=== PATIENT | female | born 1940 | race Caucasian/White ===

== ENCOUNTER 2018-11-25 13:27 | Emergency (ER) | payer MEDICARE, BC ==
[2018-11-25] MEDS ORDERED: Sodium Chloride 0.9% 10 ML Syringe FLUSH PRN (14:00)
[2018-11-25] MEDS ORDERED: Famotidine 20 MG/2 ML SDV IVPUSH ONE (14:01)
[2018-11-25] MEDS ORDERED: Alum Hydrox/Mag Hydrox/Simeth 30 ML, Lidocaine 2% 15 ML PO ONE ×2 (14:01)
--- NOTE | 2018-11-25 14:50 | CR ---
Chest: Two views of the chest were obtained. Comparison: No prior chest x-ray. Heart size is normal. Tortuous thoracic aorta is seen. Slight scarring or atelectasis is seen within the left lung base. Lungs otherwise are clear. Diaphragms are slightly flattened on the lateral view raising the possibility of emphysematous change. Mild degenerative change is scattered within the spine. Impression: 1. Incidental findings. Nothing acute is seen. Diagnostic code #2
--- NOTE | 2018-11-25 16:08 | EDM.PDOC ---
ED HPI GENERAL MEDICAL PROBLEM - General Chief Complaint: Chest Pain Stated Complaint: HEST PAIN/ VITAMIN STUCK IN THROAT Time Seen by Provider: 11/25/18 13:34 Source of Information: Reports: Patient History Limitations: Reports: No Limitations - History of Present Illness INITIAL COMMENTS - FREE TEXT/NARRATIVE: The patient presents with chest pain. This started at 10am after taking her pills. She thought one of them got stuck. She has no shortness of breath. She has a history of GERD. She will get pain like this that comes and goes and she has reflux. She has no history of heart disease. She has no fever, chills or cough. She came in today because the pain did not go away right away. She is on nexium. Onset: Sudden Duration: Hour(s): Location: Reports: Chest Quality: Reports: Burning Severity: Moderate Improves with: Reports: None Worsens with: Reports: None Associated Symptoms: Reports: Chest Pain. Denies: Cough, Fever/Chills, Headaches, Nausea/Vomiting, Shortness of Breath Chest Pain Score (Numeric/FACES): 8 - Related Data Allergies Allergy/AdvReac Type Severity Reaction Status Date / Time erythromycin base Allergy Vomiting Verified 11/25/18 13:36 nut - unspecified Allergy Itching Verified 11/25/18 13:36 Home Meds: Home Meds Alendronate Sodium [Fosamax] 70 mg PO DAILY 11/25/18 [History] Aspirin 1 tab PO DAILY 11/25/18 [History] Calcium Carbonate [Tums Extra Strength] 750 mg PO ASDIRECTED PRN 11/25/18 [ History] Calcium Phosphate Trib/Vit D3 [Citracal + D3 Gummies] 1 each PO DAILY 11/25/18 [ History] Cholecalciferol (Vitamin D3) [Vitamin D] 1 tab PO DAILY 11/25/18 [History] Esomeprazole Magnesium [Nexium 24Hr] 22.3 mg PO DAILY 11/25/18 [History] Fluticasone Propionate [Flonase] 16 gm NS ASDIRECTED PRN 11/25/18 [History] Levothyroxine [Synthroid] 50 mcg PO ACBREAKFAST 11/25/18 [History] Magnesium Gluconate 27 mg PO DAILY 11/25/18 [History] [place]-3/DHA/Epa/Fish Oil [Coram 3 500 Softgel] 1 tab PO DAILY 11/25/18 [History] Ranitidine [Zantac] 150 mg PO DAILY PRN 11/25/18 [History] Rosuvastatin [Crestor] 10 mg PO DAILY 11/25/18 [History] Past Medical History HEENT History: Reports: Hard of Hearing, Impaired Vision Cardiovascular History: Reports: High Cholesterol Respiratory History: Reports: None Gastrointestinal History: Reports: Chronic Constipation, GERD, Hemorrhoids Genitourinary History: Reports: Renal Calculus, UTI, Recurrent SERVICES ADVISOR History: Reports: Musculoskeletal History: Reports: Arthritis Neurological History: Reports: None Psychiatric History: Reports: None Endocrine/Metabolic History: Reports: Hypothyroidism Hematologic History: Reports: None Immunologic History: Reports: None Oncologic (Cancer) History: Reports: None Dermatologic History: Reports: None - Infectious Disease History Infectious Disease History: Reports: None - Past Surgical History HEENT Surgical History: Reports: Adenoidectomy, Cataract Surgery, Oral Surgery, Tonsillectomy Female Surgical History: Reports: Hysterectomy, Lithotripsy/ESWL Other Female Surgeries/Procedures: ruptured tubal Musculoskeletal Surgical History: Reports: Hip Replacement Social & Family History - Family History Family Medical History: Noncontributory - Tobacco Use Smoking Status *Q: Never Smoker - Caffeine Use Caffeine Use: Reports: Coffee - Recreational Drug Use Recreational Drug Use: No ED ROS GENERAL - Review of Systems Review Of Systems: See Below Constitutional: Reports: No Symptoms HEENT: Reports: No Symptoms Respiratory: Reports: No Symptoms Cardiovascular: Reports: Chest Pain Endocrine: Reports: No Symptoms GI/Abdominal: Reports: No Symptoms : Reports: No Symptoms Musculoskeletal: Reports: No Symptoms ED EXAM, GENERAL - Physical Exam Exam: See Below Exam Limited By: No Limitations General Appearance: Alert, No Apparent Distress Ears: Normal External Exam Nose: Normal Inspection Head: Atraumatic, Normocephalic Neck: Normal Inspection Respiratory/Chest: No Respiratory Distress, Lungs Clear, Normal Breath Sounds Cardiovascular: Regular Rate, Rhythm, No Edema, No Murmur GI/Abdominal: Soft, Non-Tender, No Organomegaly, No Mass Back Exam: Normal Inspection Extremities: Normal Inspection EKG INTERPRETATION EKG Date: 11/25/18 Time: 13:41 Rhythm: NSR Rate (Beats/Min): 63 [place]: Normal P-Wave: Present QRS: Normal ST-T: Normal QT: Normal Course - Vital Signs Last Recorded V/S: Last Vital Signs Temp 97.7 F 11/25/18 13:47 Pulse 62 11/25/18 13:47 Resp 16 11/25/18 13:47 BP 216/89 H 11/25/18 13:47 Pulse Ox 99 11/25/18 13:47 - Orders/Labs/Meds Orders: Active Orders 24 hr Category Date Time Status Cardiac Monitoring [RC] . DIRECTED Care 11/25/18 14:00 Active EKG 12 Lead [EKG Documentation Completion] [RC] STAT Care 11/25/18 13:46 Active Peripheral IV Care [RC] . DIRECTED Care 11/25/18 14:01 Active TROPONIN I [CHEM] Stat Lab 11/25/18 16:00 Received Sodium Chloride 0.9% [Saline Flush] Med 11/25/18 14:00 Active 10 ml FLUSH ASDIRECTED PRN Peripheral IV Insertion Adult [OM.PC] Stat Oth 11/25/18 14:00 Ordered Medication Orders Sodium Chloride (Saline Flush) 10 ml FLUSH ASDIRECTED PRN PRN Reason: Keep Vein Open Last Admin: 11/25/18 14:27 Dose: 10 ml Labs: Laboratory Tests 11/25/18 11/25/18 Range/Units 14:25 14:25 WBC 13.33 H (3.98-10.04) K/mm3 RBC 4.72 (3.98-5.22) M/mm3 Hgb 14.9 (11.2-15.7) gm/L Hct 44.5 (34.1-44.9) % MCV 94.3 (79.4-94.8) fl MCH 31.6 (25.6-32.2) pg MCHC 33.5 (32.2-35.5) g/dl RDW Std Deviation 45.1 (36.4-46.3) fL Plt Count 232 (182-369) K/mm3 MPV 9.6 (9.4-12.3) fl Neut % (Auto) 74.6 H (34.0-71.1) % Lymph % (Auto) 15.3 L (19.3-51.7) % [place] % (Auto) 8.4 (4.7-12.5) % Eos % (Auto) 1.1 (0.7-5.8) Baso % (Auto) 0.4 (0.1-1.2) % Neut # (Auto) 9.96 H (1.56-6.13) K/mm3 Lymph # (Auto) 2.04 (1.18-3.74) K/mm3 [place] # (Auto) 1.12 H (0.24-0.36) K/mm3 Eos # (Auto) 0.14 (0.04-0.36) K/mm3 Baso # (Auto) 0.05 (0.01-0.08) K/mm3 Sodium 142 (136-145) mEq/L Potassium 3.8 (3.5-5.1) mEq/L Chloride 104 (98-107) mEq/L Carbon Dioxide 29 (21-32) mEq/L Anion Gap 12.8 (5-15) BUN 15 (7-18) mg/dL Creatinine 0.7 (0.55-1.02) mg/dL Est Cr Clr Drug Dosing 54.79 mL/min Estimated GFR (MDRD) > 60 (>60) mL/min BUN/Creatinine Ratio 21.4 H (14-18) Glucose 93 (83-115) mg/dL Calcium 10.3 H (8.5-10.1) mg/dL Total Bilirubin 0.4 (0.2-1.0) mg/dL AST 36 (15-37) U/L ALT 51 (14-59) U/L Alkaline Phosphatase 90 (46-116) U/L Troponin I < 0.017 (0.00-0.056) ng/mL Total Protein 8.0 (6.4-8.2) g/dl Albumin 4.2 (3.4-5.0) g/dl Globulin 3.8 gm/dL Albumin/Globulin Ratio 1.1 (1-2) Meds: Medications Generic Name Dose Route Start Last Admin Trade Name Freq PRN Reason Stop Dose Admin Sodium Chloride 10 ml 11/25/18 14:00 11/25/18 14:27 Saline Flush FLUSH 10 ml ASDIRECTED PRN Administration Keep Vein Open Discontinued Medications Generic Name Dose Route Start Last Admin Trade Name Freq PRN Reason Stop Dose Admin Al Hydroxide/Mg Hydroxide 30 0 ml 11/25/18 14:01 11/25/18 14:30 ml/ Lidocaine HCl 15 ml PO 11/25/18 14:02 45 ml ONETIME ONE Administration Famotidine 20 mg 11/25/18 14:01 11/25/18 14:28 Pepcid IVPUSH 11/25/18 14:02 20 mg ONETIME ONE Administration - Re-Assessments/Exams Free Text/Narrative Re-Assessment/Exam: 11/25/18 16:09 I ordered an IV saline lock, EKG, CXR and labs. I also gave her a GI cocktail and pepcid 20mg IV. Her EKG shows a NSR with no acute changes. Her CBC and CMP look good. Her troponin is negative. She feels better. I feel this is reflux. She is on nexium and other things for this. I will do a repeat troponin. I will have her follow up with her doctor next week. Departure - Departure Time of Disposition: 16:15 Disposition: Home, Self-Care 01 Condition: Good Clinical Impression: Atypical chest pain, Hiatal hernia GERD (gastroesophageal reflux disease) Qualifiers: Esophagitis presence: with esophagitis Qualified Code(s): K21.0 - Gastro- esophageal reflux disease with esophagitis Referrals: Wendy Vazquez MD [Primary Care Provider] - 1 Week Additional Instructions: Take your medication as prescribed. Take some pepcid if you have more symptoms. Please return if you are worse. - My Orders Last 24 Hours: My Active Orders 11/25/18 13:46 EKG 12 Lead [EKG Documentation Completion] [RC] STAT 11/25/18 14:00 Cardiac Monitoring [RC] . DIRECTED Sodium Chloride 0.9% [Saline Flush] 10 ml FLUSH ASDIRECTED PRN Peripheral IV Insertion Adult [OM.PC] Stat 11/25/18 14:01 Peripheral IV Care [RC] . DIRECTED 11/25/18 16:00 TROPONIN I [CHEM] Stat - Assessment/Plan Last 24 Hours: My Active Orders 11/25/18 13:46 EKG 12 Lead [EKG Documentation Completion] [RC] STAT 11/25/18 14:00 Cardiac Monitoring [RC] . DIRECTED Sodium Chloride 0.9% [Saline Flush] 10 ml FLUSH ASDIRECTED PRN Peripheral IV Insertion Adult [OM.PC] Stat 11/25/18 14:01 Peripheral IV Care [RC] . DIRECTED 11/25/18 16:00 TROPONIN I [CHEM] Stat
== END 2018-11-25 16:25 | disposition home or self-care (01) ==
LOC: JD.ED 13:27
DX: K21.0 Gastro-esophageal reflux disease with esophagitis (principal); K44.9 Diaphragmatic hernia without obstruction or gangrene; E78.00 Pure hypercholesterolemia, unspecified; E03.9 Hypothyroidism, unspecified; Z79.82 Long term (current) use of aspirin; Z79.899 Other long term (current) drug therapy; Z88.1 Allergy status to other antibiotic agents; Z91.018 Allergy to other foods
CPT/HCPCS: 36415; 71046; 80053; 84484; 85025; 93005; 96374; 99285; A9270; J3490; 93010; 99284

== ENCOUNTER 2021-04-17 13:42 | Emergency (ER) | payer MEDICARE, BC ==
--- NOTE | 2021-04-17 14:46 | EDM.PDOC ---
ED HPI GENERAL MEDICAL PROBLEM - General Chief Complaint: ENT Problem Stated Complaint: SINUS AND EYE INFECTION Time Seen by Provider: 04/17/21 13:53 Source of Information: Reports: Patient, RN Notes Reviewed History Limitations: Reports: No Limitations - History of Present Illness INITIAL COMMENTS - FREE TEXT/NARRATIVE: Patient is an 80-year-old female presenting to the emergency department with complaints of a 1 week history of sinus drainage and congestion as well as onset of redness and purulent matter in her left eye yesterday. She reports that today she noticed a small amount of blood coming from the lateral canthus of her left eye. This quickly resolved. Eye continues to be mattery. She denies any fever or chills. Her primary care provider is Dr. Vazquez and she has an appointment scheduled with her for tomorrow. - Related Data Allergies Allergy/AdvReac Type Severity Reaction Status Date / Time nut - unspecified Allergy Severe Itching Verified 04/17/21 14:01 erythromycin base AdvReac Severe Vomiting Verified 04/17/21 14:01 Home Meds: Home Meds Alendronate Sodium [Fosamax] 70 mg PO DAILY 11/25/18 [History] Aspirin 81 mg PO DAILY 11/25/18 [History] Calcium Carbonate [Tums Extra Strength] 750 mg PO ASDIRECTED PRN 11/25/18 [History] Calcium Phosphate Trib/Vit D3 [Citracal + D3 Gummies] 1 each PO DAILY 11/25/18 [History] Cholecalciferol (Vitamin D3) [Vitamin D] 1 tab PO DAILY 11/25/18 [History] Esomeprazole Magnesium [Nexium 24Hr] 22.3 mg PO DAILY 11/25/18 [History] Fluticasone Propionate [Flonase] 16 gm NS ASDIRECTED PRN 11/25/18 [History] Levothyroxine [Synthroid] 50 mcg PO ACBREAKFAST 11/25/18 [History] Magnesium Gluconate 27 mg PO DAILY 11/25/18 [History] [place]-3/DHA/Epa/Fish Oil [[place] 3 500 Softgel] 1 tab PO DAILY 11/25/18 [History] Ranitidine [Zantac] 150 mg PO DAILY PRN 11/25/18 [History] Rosuvastatin [Crestor] 10 mg PO DAILY 11/25/18 [History] Amoxicillin/Clavulanate K [Augmentin 875-125 MG] 1 tab PO BID 7 Days #14 tab 04/17/21 [Rx] Ciprofloxacin [Ciloxan 0.3% Ophth Soln] 2 drop EYELF Q6H 5 Days #10 ml 04/17/21 [Rx] Past Medical History HEENT History: Reports: Hard of Hearing, Impaired Vision Cardiovascular History: Reports: High Cholesterol Respiratory History: Reports: None Gastrointestinal History: Reports: Chronic Constipation, GERD, Hemorrhoids Genitourinary History: Reports: Renal Calculus, UTI, Recurrent 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: Musculoskeletal History: Reports: Arthritis Neurological History: Reports: None Psychiatric History: Reports: None Endocrine/Metabolic History: Reports: Hypothyroidism Hematologic History: Reports: None Immunologic History: Reports: None Oncologic (Cancer) History: Reports: None Dermatologic History: Reports: None - Infectious Disease History Infectious Disease History: Reports: None - Past Surgical History HEENT Surgical History: Reports: Adenoidectomy, Cataract Surgery, Oral Surgery, Tonsillectomy Female Surgical History: Reports: Hysterectomy, Lithotripsy/ESWL Other Female Surgeries/Procedures: ruptured tubal Musculoskeletal Surgical History: Reports: Hip Replacement Social & Family History - Family History Family Medical History: No Pertinent Family History - Tobacco Use Tobacco Use Status *Q: Never Tobacco User - Caffeine Use Caffeine Use: Reports: Coffee, Soda, Tea - Recreational Drug Use Recreational Drug Use: No ED ROS ENT - Review of Systems Review Of Systems: Comprehensive ROS is negative, except as noted in HPI. ED EXAM, ENT - Physical Exam Exam: See Below Exam Limited By: No Limitations General Appearance: Alert, WD/WN, No Apparent Distress Eye Exam: Left Eye: Conjunctival Injection, Other (Whitish-yellow matter at the medial canthus.) Ears: Normal External Exam, Normal Canal, Hearing Grossly Normal, Normal TMs Nose: Normal Inspection, Normal Mucousa, No Blood Mouth/Throat: Normal Inspection, Normal Gums, Normal Lips, Normal Oropharynx, Normal Teeth Head: Sinus Tenderness (Maxillary) Respiratory/Chest: No Respiratory Distress, Lungs Clear, Normal Breath Sounds, No Accessory Muscle Use, Chest Non-Tender Cardiovascular: Normal Peripheral Pulses, Regular Rate, Rhythm, No Edema, No Gallop, No JVD, No Murmur, No Rub Neurological: Alert, Oriented, CN II-XII Intact, Normal Cognition, Normal Gait, Normal Reflexes, No Motor/Sensory Deficits Psychiatric: Normal Affect, Normal Mood Skin: Warm, Dry, Intact, Normal Color, No Rash Course - Vital Signs Last Recorded V/S: Last Vital Signs Temp 98.4 F 04/17/21 14:04 Pulse 65 04/17/21 14:04 Resp 20 04/17/21 14:04 BP 139/69 04/17/21 14:04 Pulse Ox 99 04/17/21 14:04 Departure - Departure Time of Disposition: 14:42 Disposition: Home, Self-Care 01 Condition: Good Clinical Impression: Sinusitis, acute Qualifiers: Sinusitis location: unspecified location Recurrence: not specified as recurrent Qualified Code(s): J01.90 - Acute sinusitis, unspecified Conjunctivitis Qualifiers: Conjunctivitis type: acute Acute conjunctivitis type: bacterial Laterality: left Qualified Code(s): H10.32 - Unspecified acute conjunctivitis, left eye - Discharge Information *PRESCRIPTION DRUG MONITORING PROGRAM REVIEWED*: No *COPY OF PRESCRIPTION DRUG MONITORING REPORT IN PATIENT LEVI: No Prescriptions: Amoxicillin/Clavulanate K [Augmentin 875-125 MG] 1 tab PO BID 7 Days #14 tab Ciprofloxacin [Ciloxan 0.3% Ophth Soln] 2 drop EYELF Q6H 5 Days #10 ml Instructions: Sinusitis, Adult, [id number] Referrals: Wendy Vazquez MD [Primary Care Provider] - Forms: ED Department Discharge Additional Instructions: You were seen in the emergency department today for a 1 week history of nasal congestion and drainage as well as onset of red mattery eye yesterday with some bloody drainage today. Exam findings are consistent with diagnosis of sinusitis and conjunctivitis. You have been started on Augmentin for treatment of sinusitis and Cipro eyedrops for conjunctivitis. Uses as prescribed. Follow-up with your primary care provider, Dr. Vazquez, tomorrow as scheduled. If you experience any new or worsening symptoms of concern, please do not hesitate to return to the emergency department for reevaluation.
== END 2021-04-17 14:53 | disposition home or self-care (01) ==
LOC: JD.ED 13:42
DX: J01.90 Acute sinusitis, unspecified (principal); H10.32 Unspecified acute conjunctivitis, left eye; E78.00 Pure hypercholesterolemia, unspecified; K21.9 Gastro-esophageal reflux disease without esophagitis; Z91.018 Allergy to other foods; E03.9 Hypothyroidism, unspecified; Z88.1 Allergy status to other antibiotic agents; Z79.82 Long term (current) use of aspirin; Z79.899 Other long term (current) drug therapy
CPT/HCPCS: 99283